=== PATIENT | male | born 1985 | race Caucasian/White ===

== ENCOUNTER 2024-01-21 19:10 | Emergency (ER) | payer OTHER, SELFPAY ==
[2024-01-21 19:19] VITALS: BP 113/74; PULSE 89; RESP 18; TEMP 35.8; O2SAT 100; BMI 27.0
== END 2024-01-21 20:20 | disposition home or self-care (01) ==
PROVIDERS: Emergency Provider Family Medicine; PCP Family Medicine
DX: Z53.21 Procedure and treatment not carried out due to patient leaving prior to being seen by health care provider (principal)

== ENCOUNTER 2024-01-22 13:30 | Outpatient (CLI) | payer OTHER, SELFPAY ==
--- NOTE | 2024-01-22 13:45 | MR_ITS ---
[address] [address] Phone:?[phone] Fax:?[phone] Referring Physician Information: Rahul Valentine M.D. [id number] [facility] [address] Phone:?[phone] Fax:?[phone] Patient:Moses Paul D.O.B:?1985 Sex:?Male Phone:?[phone] [facility] MRN:?[id number] Exam Date:?01/22/2024 EXAM: MRI OF THE LEFT ANKLE WITHOUT CONTRAST CLINICAL INFORMATION: Male, 38 years old, with left ankle pain. INDICATION: Evaluate for Achilles tendon injury. PRIOR SURGERY: None reported. PLAIN FILMS: None available. COMPARISONS: No prior MRIs available. TECHNICAL INFORMATION: Using a 1.5T MR scanner and a localizing surface coil: sagittals: PD, T2, STIR coronals: PD, T2FS axials: PD, T2 SEDATION: None. CONTRAST: None. FINDINGS: Osseous structures: No stress/occult fracture or other marrow edema/pathology. Os trigonum: No os trigonum or abnormally prominent Stieda's process. Tarsal coalition: No calcaneonavicular, talocalcaneal or cubonavicular coalition. Tibiotalar joint: Effusion: Small tibiotalar joint effusion. Ganglion cyst: None. Osteochondral surfaces: Mild chondral thinning throughout the tibiotalar joint with minimal marginal osteophytosis and mild reactive osseous changes (sagittal STIR series 4 images 12-18). Loose bodies: No demonstrable loose bodies. Subtalar joint: Effusion: Mild subtalar joint effusion. Articular cartilage: No osteochondral abnormality. Tarsal joints: Talonavicular: Unremarkable. Calcaneocuboid: Unremarkable. Naviculocuneiform: Mild-moderate chondral thinning, reactive osseous changes, and mild osteophytosis of the medial naviculocuneiform joint (sagittal STIR series 4 image 12 and axial PD series 3 image 14) the middle & lateral naviculocuneiform joints are unremarkable. Tarsometatarsal: Unremarkable. Ligaments: Syndesmotic ligaments:?The anterior and posterior inferior tibiofibular syndesmotic ligaments are normal. Lateral ligaments:?Moderate attenuation and irregularity anterior talofibular and calcaneofibular ligament (axial PD series 3 images 10-17). Deltoid ligament:?The visualized components of the superficial and deep deltoid ligament, specifically the tibiospring and posterior tibiotalar ligaments, are intact. Calcaneonavicular spring ligament:?The superomedial component of the calcaneonavicular spring ligament is grossly intact. Bifurcate and calcaneocuboid ligaments:?Intact lateral calcaneonavicular and medial calcaneocuboid ligaments. The dorsolateral calcaneocuboid ligament is intact. Tendons: Peroneal:?The peroneal tendons are appropriately situated within the retromalleolar groove and the superior peroneal retinaculum is intact. Mild peroneus brevis brevis tendinopathy, without split/tear. Peroneus longus is unremarkable. Flexor tendons:?Mild-moderate posterior tibialis tendinopathy and fraying, without split/tear (axial PD series 3 images 13-16). Flexor hallucis longus and flexor digitorum longus are intact, without tendinopathy or tear. No flexor tenosynovitis. Extensor tendons:?The anterior tibialis, extensor digitorum longus, and extensor hallucis longus tendons are intact. No significant tendinopathy and without tenosynovitis, tendon split or tendon disruption. Achilles:?Full-thickness disruption of the Achilles tendon approximately 5.8 cm from the insertion with 3.5 cm of tendon retraction/gapping and moderate surrounding soft tissue edema/hemorrhage (sagittal STIR series 5 image 14 and sagittal STIR series 4 image 15). Sinus tarsi:?The sinus tarsi signal is normal. Plantar aponeurosis: There is no abnormal thickening of, abnormal intrasubstance signal involving, or perifascial edema about the plantar aponeurosis. Specifically, the plantar fascia origin appears normal in signal intensity and morphology. Plantar musculature:?The intrinsic foot musculature is normal in bulk and signal intensity without evidence of denervation atrophy. Neurovascular structures and tarsal tunnel: The posterior tibial neurovascular structures appear unremarkable coursing past the ankle and through the tarsal tunnel. IMPRESSION: 1. Full-thickness disruption of the Achilles tendon approximately 5.8 cm from the insertion, with 3.5 cm of tendon retraction/gapping and moderate surrounding soft tissue edema/hemorrhage. 2. Mild-moderate posterior tibialis tendinopathy and fraying. 3. 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 4. Mild peroneus brevis tendinopathy, without tear. 5. Minimal osteoarthritis of the tibiotalar joint with small tibiotalar and subtalar joint effusions. 6. Chronic sequela of an intermediate grade lateral ligament sprain injury. 7. No fracture or osseous stress reaction. BC Electronically signed on 01/23/2024 8:34:00 AM by Jadon Vitale M.D.
== END 2024-01-22 13:31 | disposition home or self-care (01) ==
PROVIDERS: PCP Family Medicine; Visit Provider Orthopaedic Surgery
DX: M25.572 Pain in left ankle and joints of left foot (principal); M19.072 Primary osteoarthritis, left ankle and foot; M25.475 Effusion, left foot; S93.402S Sprain of unspecified ligament of left ankle, sequela
CPT/HCPCS: 73721

== ENCOUNTER 2024-01-23 14:41 | Outpatient (CLI) | payer OTHER, SELFPAY | END 2024-01-23 14:42 | disposition home or self-care (01) | LOC: FBOREF 14:42 | PROVIDERS: PCP Family Medicine; Visit Provider Family Medicine | DX: Z13.228 Encounter for screening for other metabolic disorders (principal); Z13.0 Encounter for screening for diseases of the blood and blood-forming organs and certain disorders involving the immune mechanism | CPT/HCPCS: 80048; 85025 ==

== ENCOUNTER 2024-01-25 07:06 | Day surgery (SDC) | payer OTHER, SELFPAY ==
[2024-01-25] VITALS (13 sets, daily range): BP systolic 105–131; BP diastolic 58–86; PULSE 48–66; RESP 14–18; TEMP 36.1–36.9; O2SAT 95–100; BMI 27.6
[2024-01-25] MEDS: fentaNYL 100 MCG/2 ML inj IVP (06:02)
[2024-01-25] MEDS: ACETAMINOPHEN 500 MG TABLET 1000 MG PO (06:02)
[2024-01-25] MEDS: CELECOXIB 200 MG CAPSULE PO (06:02)
[2024-01-25] MEDS: MIDAZOLAM HCL 1 MG/ML inj IVP (06:02)
[2024-01-25] MEDS: OXYCODONE (CR) 10 MG TAB.ER.12H PO (06:02)
[2024-01-25] MEDS: LACTATED RINGERS 1000 ML 1,000 ML 100 ML IV ×2 (06:05→09:55)
[2024-01-25] MEDS: SODIUM CHLORIDE 0.9 % (FLUSH) 10 ML SYRINGE IVF (08:33)
--- NOTE | 2024-01-25 09:07 | SUR.PREOP ---
TIME?OUT:?904 PT/RN/JARED?VERIFICATION?OF?SURGICAL?SITE,?PROCEDURE,?AND?CONSENT OBTAINED?PRIOR?TO?INVASIVE?PROCEDURE.left adi Claire MDA
[2024-01-25] MEDS: CEFAZOLIN 2 GM INJ IVP (09:40)
--- NOTE | 2024-01-25 10:55 | REH.PT ---
Pt was fitted for crutches and issued for home use. Instructed pt in gt level surfaces with 2 crutches, basic transfers and verbally instructed in stairs sequence and car transfers. Goals of PT were met. DC. No Charge.
--- NOTE | 2024-01-25 11:04 | PM.ORPRC ---
Procedure Note Date of procedure: 01/25/24 Procedure: SURGEON: Rahul Valentine MD PICKER PACKER: KAELYN Armstrong PREOPERATIVE DIAGNOSIS: Left lower extremity Achilles rupture POSTOPERATIVE DIAGNOSIS: Left lower extremity Achilles rupture NAME OF OPERATION: Primary repair with flexor hallucis longus augmentation ANESTHESIA: Spinal, plus popliteal block ESTIMATED BLOOD LOSS: 0 mL COMPLICATIONS: None SPECIMENS: None DRAINS: None PREOPERATIVE ANTIBIOTICS: Ancef 2 gram INDICATIONS: The patient is a 38-year-old male who sustained a left lower extremity Achilles tendon rupture. Primary repair with FHL augmentation was recommended. The risks, benefits and expected outcomes were discussed in detail. These included but were not limited to: Infection, bleeding, injury to blood vessel or nerve, venous thromboembolism. All questions were answered to their satisfaction. Use of an medical receptionist assistant was necessary throughout the case for patient positioning and safety, soft tissue retraction and closure. PROCEDURE: A popliteal block was placed by anesthesia. Spinal anesthesia was administered. The patient was placed supine on the operating room table. The left lower extremity was prepped and draped in the usual sterile fashion. The limb was exsanguinated with the Humberto bandage. The pneumatic tourniquet was inflated to 300 mmHg. A longitudinal incision was made medially, over the Achilles tendon. Subcutaneous dissection was taken sharply to the Achilles which was completely ruptured. The medical receptionist assistant was used to retract the soft tissues and protect them. A #2 FiberWire suture was placed in each end of the Achilles in a modified Krackow stitch. Attention was then turned to the FHL graft harvest. The deep fascia over the FHL was longitudinally divided. The FHL muscle belly was mobilized off of the fibula. Care was taken to protect the tibial nerve. A longitudinal incision was made over the medial border of the foot in the junction between the normal and glabrous skin. Subcutaneous dissection sharply taken to the abductor hallucis muscle. The muscle was elevated off of the bone and retracted plantarly. Crossing veins were cauterized. The master knot of Chandan was encountered. The FHL tendon was isolated and was divided, just distal to the master knot of Chandan. The graft was pulled into the proximal wound. We then passed the FHL graft from anterior to posterior through the distal stump of the tendon, just proximal to its insertion. The ankle was placed in plantar flexion and the FiberWire sutures were tied securing the primary repair of the Achilles tendon. We then placed the ankle at 90? and tensioned the FHL graft and sutured it to the distal stump of the Achilles tendon with an 0 Vicryl suture. It was secured along the medial border of Achilles with multiple interrupted horizontal mattress 0 Vicryl sutures. This provided an excellent repair of the Achilles with augmentation. There is no tension on the repair with the ankle in a neutral position. The wounds were irrigated with normal saline. The medical receptionist assistant closed soft tissue with a 2-0 Vicryl deep and a 3-0 Monocryl in a subcuticular fashion. Glue was used to seal the skin. The medical receptionist assistant placed a dry dressing and short leg Mehdi Peterson splint with the ankle in a neutral position. The tourniquet was released. Sponge and needle counts were correct x 2. The patient tolerated the procedure well. There were no apparent complications. They were carefully transferred to the hospital bed and taken to the postanesthesia care unit in satisfactory condition. PLAN: The patient will be discharged to home. They will remain strict nonweightbearing on the lower extremity. They will continue to work on ice and elevation. They will follow up in the office in 1 week for a wound check. If there are no wound issues we will place them in a CAM walker and allow them to weightbear as tolerates. Additionally, we will likely begin some early physical therapy.
--- NOTE | 2024-01-25 11:34 | W.ANESCHARGE ---
Anesthesia Charges Start Date/Time Anesthesia Start Date: 01/25/24 Anesthesia Start Time: 09:20 Stop Date/Time Anesthesia Stop Date: 01/25/24 Anesthesia Stop Time: 11:28
--- NOTE | 2024-01-25 11:38 | W.ANESCHARGE ---
Anesthesia Charges Start Date/Time Anesthesia Start Date: 01/25/24 Anesthesia Start Time: 09:20 Stop Date/Time Anesthesia Stop Date: 01/25/24 Anesthesia Stop Time: 11:28
--- NOTE | 2024-01-25 11:39 | P.NB_ITS ---
Nerve Block Nerve Block Time Seen by Provider: 09:05 Date Seen: 01/25/24 Type of block requested by surgeon for post-operative analgesia: popliteal Side: left Time out performed: Yes Verification of patient name: Yes Verification of date of : Yes Site marking: site marked Name of person performing procedure: Dakotah Continuous monitoring Was continuous monitoring of O2 sat, B/P, monitor and storage bin tender, recorded every 15 minutes?: Yes Procedure Checklist: sterile prep, needles and gloves Ultrasound guided. Images saved: Yes Medications given in 5ml increments after negative aspiration: Marcaine %: 0.5 mL: 20 Needle gauge: 22 Patient tolerated procedure well: Yes Additional comments: Needle noted adjacent to nerve Block Charges Block Charge (with Pro Fee): Sciatic Nerve Use of Ultrasound Machine for Block: Yes- US Guidance/pain block
== END 2024-01-25 13:10 | disposition home or self-care (01) ==
PROVIDERS: PCP Family Medicine; Visit Provider Orthopaedic Surgery
PROC: (CPT 27650; principal; 2024-01-25 09:00)
DX: S86.012A Strain of left Achilles tendon, initial encounter (principal); G89.18 Other acute postprocedural pain
CPT/HCPCS: 27652; 01472; 64445; 76942; A4580; A9270; J0665; J0690; J2250; J2704; J3010; J7120

== ENCOUNTER 2024-07-03 08:13 | Outpatient (CLI) | payer OTHER, SELFPAY | END 2024-07-03 08:14 | disposition home or self-care (01) | LOC: NFLDREF 07-11 23:05 | PROVIDERS: PCP Family Medicine; Referring Provider Family Medicine; Visit Provider Family Medicine | DX: Z13.1 Encounter for screening for diabetes mellitus (principal); Z13.6 Encounter for screening for cardiovascular disorders | CPT/HCPCS: 80061; 82947 ==

== ENCOUNTER 2024-07-19 09:00 | Outpatient (RCR) | payer OTHER, SELFPAY | END 2024-08-15 13:11 | disposition home or self-care (01) | PROVIDERS: PCP Family Medicine; Visit Provider Orthopaedic Surgery | DX: Z51.89 Encounter for other specified aftercare (principal); S86.009A Unspecified injury of unspecified Achilles tendon, initial encounter; Z98.890 Other specified postprocedural states; M25.572 Pain in left ankle and joints of left foot; R53.1 Weakness; R26.2 Difficulty in walking, not elsewhere classified | CPT/HCPCS: 97110; 97140; 97161 ==

== ENCOUNTER 2024-11-08 06:57 | Outpatient (CLI) | payer OTHER, SELFPAY | END 2024-11-08 06:58 | disposition home or self-care (01) | PROVIDERS: PCP Family Medicine; Visit Provider Family Medicine | DX: R31.9 Hematuria, unspecified (principal) | CPT/HCPCS: 80048; 87086 ==